=== PATIENT | male | born 1985 | race Caucasian/White ===

== ENCOUNTER 2021-11-08 19:49 | Emergency (ER) | payer OTHER, SELFPAY ==
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
[2021-11-08 20:14] VITALS: BP 139/81; PULSE 85; RESP 17; TEMP 36.6; O2SAT 98; BMI 19.6
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
[2021-11-08] MEDS: Ketorolac Tromethamine 30 MG/ML VIAL IM (22:59)
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
== END 2021-11-09 01:17 | disposition home or self-care (01) ==
PROVIDERS: Emergency Provider Internal Medicine
DX: S06.0X1A Concussion with loss of consciousness of 30 minutes or less, initial encounter (principal); S00.212A Abrasion of left eyelid and periocular area, initial encounter; S60.512A Abrasion of left hand, initial encounter; S60.511A Abrasion of right hand, initial encounter; S50.312A Abrasion of left elbow, initial encounter; S00.12XA Contusion of left eyelid and periocular area, initial encounter; S50.02XA Contusion of left elbow, initial encounter; Y04.2XXA Assault by strike against or bumped into by another person, initial encounter; M79.605 Pain in left leg; Y93.9 Activity, unspecified; Y92.410 Unspecified street and highway as the place of occurrence of the external cause; Y99.9 Unspecified external cause status
CPT/HCPCS: 70450; 70486; 72125; 73070; 73590; 96372; 99284; J1885